=== PATIENT | female | born 1965 | race Caucasian/White ===

== ENCOUNTER 2018-06-30 07:57 | Inpatient (IN) | payer OTHER ==
[~2018-06-30] VITALS: Ht 175.3 cm; Wt 77.5 kg
[2018-06-30] MEDS ORDERED: IPRATROPIUM 0.5MG/ALBUTEROL 2.5MG INH SOL UD 3ML (DUONEB)(J7620) NEB ONE ×2 (08:15→11:00)
[2018-06-30] MEDS ORDERED: NS 1,000 ML IV ONE (08:15)
[2018-06-30] MEDS ORDERED: ACETAMINOPHEN 500 MG TAB PO ONE (08:15)
[2018-06-30 08:41] LABS: BASO # 0.1 10^3/uL (0.0-0.2); BASO % 0.6 % (0.0-1.0); HEMATOCRIT 44.3 % (36.0-47.0); HEMOGLOBIN 14.3 g/dl (12.0-15.5); LYMPH # 0.5 10^3/uL (1.5-4.5); LYMPH % 5.7 % (24.0-44.0); MEAN CORPUSCULAR HEMOGLOBIN 31.2 pg (27.0-33.0); MEAN CORPUSCULAR HGB CONC 32.3 g/dl (32.0-36.5); MEAN CORPUSCULAR VOLUME 96.5 fl (80.0-96.0); MONO # 0.7 10^3/uL (0.0-0.8); MONO % 8.3 % (0.0-5.0); NEUTROPHILS # 7.4 10^3/uL (1.8-7.7); NEUTROPHILS % 85.3 % (36.0-66.0); PLATELET COUNT, AUTOMATED 217 10^3/uL (150-450); RED BLOOD COUNT 4.59 10^6/uL (4.00-5.40); VENOUS BASE EXCESS 0.8 (-2.0-2.0); VENOUS HCO3 26.4 MEQ/L (23.0-27.0); VENOUS O2 SATURATION 80.2 % (60.0-80.0); VENOUS PARTIAL PRESSURE CO2 45.5 mmHg (38.0-50.0); VENOUS PARTIAL PRESSURE O2 42.9 mmHg (30.0-50.0); VENOUS PH 7.381 UNITS (7.330-7.430); VENOUS STANDARD HCO3 24.8 MEQ/L; VENOUS TOTAL CO2 27.8 MEQ/L (24.0-28.0); WHITE BLOOD COUNT 8.7 10^3/uL (4.0-10.0)
--- NOTE | 2018-06-30 08:43 | REP ---
Clinical: Cough and dyspnea . Comparison: 03/19/2013 . Findings: The mediastinum and cardiac silhouette are stable and within normal limits for portable technique. The lung blunt are clear without acute consolidation, effusion, or pneumothorax. Skeletal structures are intact. Impression: No acute cardiopulmonary process appreciated. Electronically Signed by Nicholas Escalante MD 06/30/2018 08:34 A
[2018-06-30 09:21] LABS: INFLUENZA A AMPLIFICATION POSITIVE (NEGATIVE); INFLUENZA B AMPLIFICATION NEGATIVE (NEGATIVE)
[2018-06-30 09:24] LABS: ALBUMIN 3.9 GM/DL (3.2-5.2); ALT/SGPT 23 U/L (12-78); BILIRUBIN,DIRECT < 0.1 MG/DL (0.0-0.2); BILIRUBIN,TOTAL 0.4 MG/DL (0.2-1.0); BLOOD UREA NITROGEN 12 MG/DL (7-18); CALCIUM LEVEL 8.9 MG/DL (8.5-10.1); CARBON DIOXIDE LEVEL 26 MEQ/L (21-32); CHLORIDE LEVEL 105 MEQ/L (98-107); CK-MB VALUE MASS < 1.0 NG/ML (<3.6); CPK CREATINE PHOSPHOKINASE 74 U/L (26-192); CREATININE FOR GFR 0.77 MG/DL (0.55-1.30); GLOMERULAR FILTRATION RATE > 60.0 (>51); GLUCOSE, FASTING 122 MG/DL (70-100); MB/CK RELATIVE INDEX 1.35 (< OR =4); NT-PRO BNP 1010 PG/ML (<125); POTASSIUM SERUM 3.8 MEQ/L (3.5-5.1); SODIUM LEVEL 138 MEQ/L (136-145); THYROID STIMULATING HORMONE 0.096 uIU/ML (0.358-3.740); TOTAL PROTEIN 7.1 GM/DL (6.4-8.2); TROPONIN I < 0.02 NG/ML (< 0.10)
[2018-06-30] MEDS ORDERED: OSELTAMIVIR PHOSPHATE 75 MG CAP (TAMIFLU) PO ONE (09:45)
[2018-06-30] MEDS ORDERED: ONDANSETRON 4 MG TAB (S0181) PO PRN (12:15)
[2018-06-30] MEDS ORDERED: BISACODYL 5 MG TAB PO PRN (12:15)
[2018-06-30] MEDS: PANTOPRAZOLE 40MG TAB (PROTONIX) PO SCH (12:56)
[2018-06-30] MEDS ORDERED: NICOTINE 21MG/24HR 1 EA TRANSDERMAL TD ONE (13:00)
[2018-06-30] MEDS ORDERED: AZITHROMYCIN 250 MG TAB PO ONE (13:00)
[2018-06-30] MEDS: IPRATROPIUM 0.5MG/ALBUTEROL 2.5MG INH SOL UD 3ML (DUONEB)(J7620) NEB SCH ×2 (13:24→19:22)
--- NOTE | 2018-06-30 15:31 | ECGEPIP ---
Stationary ECG Study [facility] - ED Test Date: 2018-06-30 Pat Name: JEAN PIERRE MERINO Department: Room: - Gender: F [employer]: : 1965 Requested By: Chayo Harmon Order Number: [id number] Reading MD: Gerald Fisher Measurements Intervals [place] Rate: 99 P: 54 WI: 146 QRS: 11 QRSD: 82 T: 49 QT: 347 QTc: 446 Interpretive Statements SINUS RHYTHM WITH OCCASIONAL ATRIAL AND VENTRICULAR PREMATURE COMPLEXES POSSIBLE LEFT ATRIAL ENLARGEMENT NONSPECIFIC T-WAVE ABNORMALITY NO PRIORS FOR COMPARISON Electronically Signed On 06-30-2018 15:30:46 EDT by Gerald Fisher
[2018-06-30] MEDS: ACETAMINOPHEN TAB 650MG DOSE (2X325MG) PO PRN ×4 (15:42→20:17)
[2018-06-30 15:55] VITALS: BP 121/77
--- NOTE | 2018-06-30 16:02 | HPEPDOC ---
[facility] Medical History & Physical Date of Admission Jun 30, 2018 Attending Physician: DOMINGO MARTE MD History and Physical CHIEF COMPLAINT: Cough and headache HISTORY OF PRESENT ILLNESS: Patient presents to the emergency department today stating that over the last couple of days she has been unable to eat or drink due to her nausea. She also reports 3 day history of rhinorrhea, and productive cough with clear sputum. She also reports feeling febrile with associated fever and chills. She is not taking any medication at home and does not have a primary care provider. In the emergency department the patient, patient presented with a pulse ox of 87%. She was subsequently started on 2 L of supplemental oxygen via nasal cannula. Saturations improved to 95%. Patient does not wear supplemental O2 at home. Patient was given a DuoNeb treatment with good effect and a bolus of fluid. CBC does not indicate anemia or elevated white count. CMP is largely unremarkable, no electrolyte abnormalities. Lactic acid is 1.3. Patient does have an elevated proBNP of 1010. Her neck enzymes are negative. Alkaline phosphatase mildly elevated at 158. Patient is positive for influenza A via PCR. Hospitalist team was consult for further treatment and evaluation of the patient. PAST MEDICAL HISTORY: 1. Low back pain Patient denies any previous significant medical history. PAST SURGICAL HISTORY: 1. Lumbar discectomy in 1996 2. Hysterectomy in 2004 SOCIAL HISTORY: Marital status: Resides in: Home with Tobacco use: Current smoker, 1 PPD since teen ETOH: Denies alcohol abuse Illicit drug use: Denies illicit drug use IV drug use: Denies IV drug use FAMILY HISTORY: Father: , 77, heart disease Mother: Alive, 86, dementia, arthritis, diabetes Siblings: 2 brothers, one at 63, diabetes, lymphoma. 3 sisters, one in 50s, diabetes ALLERGIES: Please see below. REVIEW OF SYSTEMS: CONSTITUTIONAL: Reports fevers, chills and fatigue. Denies night sweats, changes in weight HEENT: Complains of 3 day history of headache, rhinorrhea CARDIOVASCULAR: Denies chest pain, pressure, palpitations RESPIRATORY: Complains of three-day history of productive cough with clear sputum. GASTROINTESTINAL: Complains of nausea with 1 episode of vomiting yesterday. Inability to eat or drink due to nausea for 48 hours. Denies reflux, abdominal pain/cramping, constipation, diarrhea GENITOURINARY: Denies difficulty with urination SKIN: Denies new or changing skin lesions MUSCULOSKELETAL: Complains of generalized muscle aches, no weakness NEUROLOGICAL: Reports long-standing numbness and tingling in her hands and feet. No focal neurologic deficits PSYCHIATRIC: Denies depression or anxiety HOME MEDICATIONS: Patient denies utilizing any home medications other than the occasional Tylenol for her back pain and Unisom for sleep aid PHYSICAL EXAMINATION: VITAL SIGNS: Temperature 99.8F, pulse 96, respiratory rate 17, blood pressure 119/71, pulse oximetry 95 % on 2L supplemental O2 via NC. GENERAL APPEARANCE: Awake, alert, sitting upright in bed in no acute distress. HEENT: Mild posterior pharyngeal erythema, EOMI, PERRLA, neck is supple without lymphadenopathy CARDIOVASCULAR: Regular rate and rhythm, no murmurs gallops or rubs LUNGS: Clear to auscultation bilaterally, no prolonged expiratory phase, no wheezing, no crackles rales or rhonchi ABDOMEN: Obese, soft, nontender, no organomegaly MUSCULOSKELETAL: Able to move all extremities equally and bilaterally, no weakness EXTREMITIES: No lower extremity edema, no calf tenderness, peripheral pulses 2+ NEUROLOGICAL: No facial drooping, no aphasia, cranial nerves II through XII grossly intact, no focal neurologic deficits PSYCHIATRIC: Mood and affect are appropriate. LABORATORY DATA: See below. IMAGING: Chest x-ray (06/30/18): No acute cardiopulmonary process appreciated MICROBIOLOGY: Blood cultures (06/30/18): Pending ASSESSMENT: Maddy Urias is a 52-year-old female without a significant past medical history, lifelong smoker 1 pack per day, who presents emergency department with a three-day history of fever, chills, productive cough with associated nausea and vomiting. She was hypoxic on initial presentation, requiring 2 L of supplemental O2 via nasal cannula. Patient is positive for influenza A. PLAN: Influenza A - Patient started on Tamiflu 75 mg twice a day for 5 days, does not require renal dosing - Chest x-ray reviewed - Tylenol as needed for fever and muscle aches - Zofran PRN for nausea Hypoxia likely 2/2 to underlying obstructive lung disease - likely exacerbated by Influenza A - DuoNeb every 6 hours - Patient will continue on supplemental oxygen to maintain saturations above 92% - By mouth azithromycin for 5 days - Methylprednisolone 40 mg every 12 hours - Will check bedside spirometry to evaluate FEVa Nicotine dependence - Patient reports smoking 1 PPD since her teens - Patient placed on nicotine patch 21 mg GI prophylaxis: - PO Protonix DVT prophylaxis: Lovenox 40 mg SC Vital Signs Vital Signs Date Time Temp Pulse Resp B/P (MAP) Pulse Ox O2 Delivery O2 Flow Rate FiO2 06/30/18 14:08 99.1 83 16 118/63 (81) 96 Nasal Cannula 2.0 96 Laboratory Data Labs 24H Laboratory Tests 2 06/30/18 08:22: Immature Granulocyte % (Auto) 0.1, White Blood Count 8.7, Red Blood Count 4.59, Hemoglobin 14.3, Hematocrit 44.3, Mean Corpuscular Volume 96.5H, Mean Corpuscular Hemoglobin 31.2, Mean Corpuscular Hemoglobin Concent 32.3, Red Cell Distribution Width 13.5, Platelet Count 217, Neutrophils (%) (Auto) 85.3H, Lymphocytes (%) (Auto) 5.7L, Monocytes (%) (Auto) 8.3H, Eosinophils (%) (Auto) 0.0, Basophils (%) (Auto) 0.6, Neutrophils # (Auto) 7.4, Lymphocytes # (Auto) 0.5L, Monocytes # (Auto) 0.7, Eosinophils # (Auto) 0.0, Basophils # (Auto) 0.1, Nucleated Red Blood Cells % (auto) 0.0, Blood Gas Bicarbonate Standard 24.8, Venous Blood pH 7.381, Venous Blood Partial Pressure CO2 45.5, Venous Blood Partial Pressure O2 42.9, Venous Blood Total Carbon Dioxide 27.8, Venous Blood HCO3 26.4, Venous Blood Oxygen Saturation 80.2H, Venous Blood Base Excess 0.8, Anion Gap 7L, Glomerular Filtration Rate > 60.0, Lactic Acid Level 1.3, Calcium Level 8.9, Aspartate Amino Transf (AST/SGOT) 22, Alanine Aminotransferase (ALT/SGPT) 23, Alkaline Phosphatase 158H, Total Bilirubin 0.4, Direct Bilirubin < 0.1, Total Creatine Kinase 74, Creatine Kinase MB < 1.0, Creatine Kinase MB Relative Index 1.35, Troponin I < 0.02, UX-Ugr-R-Type Natriuretic Peptide 1010H, Total Protein 7.1, Albumin 3.9, Albumin/Globulin Ratio 1.22, Thyroid Stimulating Hormone (TSH) 0.096L, Influenza Type A (RT-PCR) POSITIVEH, Influenza Type B (RT- PCR) NEGATIVE CBC/BMP Laboratory Tests 06/30/18 08:22 Red Blood Count 4.59, Mean Corpuscular Volume 96.5 H, Mean Corpuscular Hemoglobin 31.2, Mean Corpuscular Hemoglobin Concent 32.3, Red Cell Distribution Width 13.5, Neutrophils (%) (Auto) 85.3 H, Lymphocytes (%) (Auto) 5.7 L, Monocytes (%) (Auto) 8.3 H, Eosinophils (%) (Auto) 0.0, Basophils (%) (Auto) 0.6, Neutrophils # (Auto) 7.4, Lymphocytes # (Auto) 0.5 L, Monocytes # (Auto) 0.7, Eosinophils # (Auto) 0.0, Basophils # (Auto) 0.1 Microbiology Microbiology 06/30/18 Blood Culture, Received Pending 06/30/18 Blood Culture, Received Pending Home Medications No Active Prescriptions or Reported Meds Allergies Coded Allergies: Aspirin (Verified Adverse Reaction, Mild, UPSET STOMACH, 07/21/12) GME ATTESTATION GME ATTESTATION My faculty preceptor for this patient encounter was physically present during the encounter and was fully available. All aspects of the patient interview, examination, medical decision making process, and medical care plan development were reviewed and approved by the faculty preceptor. The faculty preceptor is aware and concurs with the plan as stated in the body of this note and will attest to such by his/her cosignature. ATTENDING NOTE I, Domingo Marte, have both independently examined this patient as well as reviewed the documentation. I have discussed in detail with the resident the findings and plan of treatment as documented in the residents documentation. I will continue to follow the patient and offer further guidance to the patients care as necessary during this hospital stay. CARISSA CHINCHILLA DO Jun 30, 2018 16:02 DOMINGO MARTE MD Jun 30, 2018 17:26
[2018-06-30] MEDS: methylPREDNISolone INJ 40 MG/1 ML VIAL (J2920) IV SCH (17:24)
[2018-06-30 20:00] VITALS: BP 134/82
[2018-06-30] MEDS: OSELTAMIVIR PHOSPHATE 75 MG CAP (TAMIFLU) PO SCH (20:17)
[2018-07-01] MEDS: IPRATROPIUM 0.5MG/ALBUTEROL 2.5MG INH SOL UD 3ML (DUONEB)(J7620) NEB SCH ×4 (01:11→20:04)
[2018-07-01] MEDS: methylPREDNISolone INJ 40 MG/1 ML VIAL (J2920) IV SCH ×2 (03:07→15:08)
[2018-07-01 05:00] VITALS: BP 138/98
[2018-07-01] MEDS: ACETAMINOPHEN TAB 650MG DOSE (2X325MG) PO PRN ×3 (05:46→21:20)
[2018-07-01 06:54] LABS: HEMATOCRIT 39.4 % (36.0-47.0); HEMOGLOBIN 12.8 g/dl (12.0-15.5); MEAN CORPUSCULAR HEMOGLOBIN 31.1 pg (27.0-33.0); MEAN CORPUSCULAR HGB CONC 32.5 g/dl (32.0-36.5); MEAN CORPUSCULAR VOLUME 95.6 fl (80.0-96.0); PLATELET COUNT, AUTOMATED 191 10^3/uL (150-450); RED BLOOD COUNT 4.12 10^6/uL (4.00-5.40); WHITE BLOOD COUNT 8.3 10^3/uL (4.0-10.0)
[2018-07-01 07:14] LABS: BLOOD UREA NITROGEN 10 MG/DL (7-18); CALCIUM LEVEL 8.5 MG/DL (8.5-10.1); CARBON DIOXIDE LEVEL 29 MEQ/L (21-32); CHLORIDE LEVEL 104 MEQ/L (98-107); CREATININE FOR GFR 0.71 MG/DL (0.55-1.30); GLOMERULAR FILTRATION RATE > 60.0 (>51); GLUCOSE, FASTING 124 MG/DL (70-100); MAGNESIUM LEVEL 2.1 MG/DL (1.8-2.4); POTASSIUM SERUM 3.8 MEQ/L (3.5-5.1); SODIUM LEVEL 136 MEQ/L (136-145)
[2018-07-01] MEDS ORDERED: AZITHROMYCIN 250 MG TAB PO SCH (09:00)
[2018-07-01] MEDS: PANTOPRAZOLE 40MG TAB (PROTONIX) PO SCH (09:17)
[2018-07-01] MEDS: ENOXAPARIN 40 MG/0.4 ML SYRINGE (J1650) SC SCH (09:17)
[2018-07-01] MEDS: OSELTAMIVIR PHOSPHATE 75 MG CAP (TAMIFLU) PO SCH ×2 (09:17→20:35)
--- NOTE | 2018-07-01 12:00 | IPNPDOC ---
Date Seen The patient was seen on 07/01/18. Progress Note SUBJECTIVE: c/o cough productive of sputum white yellow. no fever or chills. not ambulated outside the room c/o generalized weakness. PHYSICAL EXAMINATION: VITAL SIGNS:PLEASE SEE BELOW GENERAL APPEARANCE: no use of accessory respiratory muscles. no cyanosis HEENT: no cervical LAD or JVD CARDIOVASCULAR: Regular rate and rhythm, no murmurs gallops or rubs LUNGS: Clear to auscultation bilaterally, no wheezing, rales, or rhonchi ABDOMEN: Obese, soft, nontender,(+) BS. EXT: no eema LABORATORY DATA: See below. IMAGING: Chest x-ray (06/30/18): No acute cardiopulmonary process appreciated MICROBIOLOGY: Blood cultures (06/30/18): Pending ASSESSMENT AND PLAN:Patient presents to the emergency department today stating that over the last couple of days she has been unable to eat or drink due to her nausea. She also reports 3 day history of rhinorrhea, and productive cough with clear sputum. She also reports feeling febrile with associated fever and chills. She is not taking any medication at home and does not have a primary care provider. In the emergency department the patient, patient presented with a pulse ox of 87%. She was subsequently started on 2 L of supplemental oxygen via nasal cannula. Saturations improved to 95%. Patient does not wear supplemental O2 at home. Patient was given a DuoNeb treatment with good effect and a bolus of fluid. CBC does not indicate anemia or elevated white count. CMP is largely unremarkable, no electrolyte abnormalities. Lactic acid is 1.3. Patient does have an elevated proBNP of 1010. Her neck enzymes are negative. Alkaline phosphatase mildly elevated at 158. Patient is positive for influenza A via PCR. Hospitalist team was consult for further treatment and evaluation of the patient. Influenza A on tamiflu x 5 days supplemental oxygen Acute hypoxic respiratory failure due to influenza supplemental oxygen if o2 sat<88% with ambulation no infiltrate or edema on cxr no wheezing on exam Nicotine dependence tobacco cessation counselling nicotine patch GI prophylaxis: - PO Protonix DVT prophylaxis: Lovenox 40 mg SC dc in am if stable. VS, I&O, 24H, Fishbone Vital Signs/I&O Vital Signs Date Time Temp Pulse Resp B/P (MAP) Pulse Ox O2 Delivery O2 Flow Rate FiO2 07/01/18 07:15 2.0 07/01/18 05:00 99.7 98 16 138/98 (111) 91 06/30/18 16:00 06/30/18 15:38 Nasal Cannula I&O- Last 24 Hours up to 6 AM 07/01/18 06:00 Intake Total 1780 ml Output Total 1200 ml Balance 580 ml Laboratory Data 24H LABS Laboratory Tests 2 07/01/18 06:33: Nucleated Red Blood Cells % (auto) 0.0, Anion Gap 3L, Glomerular Filtration Rate > 60.0, Blood Urea Nitrogen 10, Creatinine 0.71, Sodium Level 136, Potassium Level 3.8, Chloride Level 104, Carbon Dioxide Level 29, Calcium Level 8.5, Magnesium Level 2.1 CBC/BMP Laboratory Tests 07/01/18 06:33 Red Blood Count 4.12, Mean Corpuscular Volume 95.6, Mean Corpuscular Hemoglobin 31.1, Mean Corpuscular Hemoglobin Concent 32.5, Red Cell Distribution Width 13.3, Calcium Level 8.5 Microbiology Microbiology 06/30/18 Blood Culture - Preliminary, Resulted No growth after 24 hours . All specim... 06/30/18 Blood Culture - Preliminary, Resulted No growth after 24 hours . All specim... GENEVIEVE CROOKS MD Jul 01, 2018 11:43
--- NOTE | 2018-07-01 12:22 | PFTRPT ---
Height: 69.00 Inches Weight: 170.00 Lbs BSA: 1.93 Diagnosis: SOB DATE OF PROCEDURE: 07/01/2018 ORDERED BY: Dr. Domingo Gillespie Spirometry: Study of excellent technical quality. Some difficulty with effort. Forced vital capacity is severely reduced. FEV1 in proportion. Obstructive index is, therefore, normal. Flow Volume Loop: Expiratory limb of the flow volume loop does suggest flow rate limitation. Suboptimal effort is suspected. IMPRESSION: Suspect obstruction with air trapping. Suboptimal effort hampers data aquisition. Please correlate clinically. MTDD
[2018-07-01 14:00] VITALS: BP 130/72
[2018-07-01] MEDS ORDERED: guaiFENesin DM LIQ 10ML UD PO PRN (15:15)
[2018-07-01] MEDS ORDERED: guaiFENesin DM LIQ 10ML UD PO ONE (15:15)
[2018-07-01 22:00] VITALS: BP 122/74
[2018-07-02] MEDS: IPRATROPIUM 0.5MG/ALBUTEROL 2.5MG INH SOL UD 3ML (DUONEB)(J7620) NEB SCH ×3 (02:29→14:07)
[2018-07-02] MEDS: methylPREDNISolone INJ 40 MG/1 ML VIAL (J2920) IV SCH (04:27)
[2018-07-02 06:00] VITALS: BP 137/85
[2018-07-02 07:14] LABS: HEMOGLOBIN 13.1 g/dl (12.0-15.5); MEAN CORPUSCULAR HEMOGLOBIN 30.8 pg (27.0-33.0); MEAN CORPUSCULAR VOLUME 96.5 fl (80.0-96.0); PLATELET COUNT, AUTOMATED 194 10^3/uL (150-450); RED BLOOD COUNT 4.25 10^6/uL (4.00-5.40)
[2018-07-02 07:33] LABS: BLOOD UREA NITROGEN 10 MG/DL (7-18); CALCIUM LEVEL 8.9 MG/DL (8.5-10.1); CARBON DIOXIDE LEVEL 29 MEQ/L (21-32); CHLORIDE LEVEL 102 MEQ/L (98-107); CREATININE FOR GFR 0.68 MG/DL (0.55-1.30); GLOMERULAR FILTRATION RATE > 60.0 (>51); GLUCOSE, FASTING 112 MG/DL (70-100); MAGNESIUM LEVEL 2.4 MG/DL (1.8-2.4); POTASSIUM SERUM 3.7 MEQ/L (3.5-5.1); SODIUM LEVEL 139 MEQ/L (136-145)
[2018-07-02] MEDS ORDERED: GUAIDM5UD PO (08:41)
[2018-07-02] MEDS ORDERED: OSEL75CA2 PO (08:41)
[2018-07-02] MEDS ORDERED: VENTAER INH (08:43)
[2018-07-02] MEDS: OSELTAMIVIR PHOSPHATE 75 MG CAP (TAMIFLU) PO SCH (09:07)
[2018-07-02] MEDS: PANTOPRAZOLE 40MG TAB (PROTONIX) PO SCH (09:07)
[2018-07-02] MEDS: ENOXAPARIN 40 MG/0.4 ML SYRINGE (J1650) SC SCH (09:07)
--- NOTE | 2018-07-02 09:28 | REP ---
Chest x-ray: Two views. History: Hypoxia. Comparison study: June 30, 2018. Findings: On today's chest x-ray there are linear opacities in both lung bases suggesting bibasilar plate-like atelectasis. No definite infiltrate. Pleural angles are sharp. The heart is not felt to be enlarged. No significant bony abnormality. Impression: Bibasilar discoid atelectatic changes. Otherwise no acute disease. Electronically Signed by Jan Ricks MD 07/02/2018 01:12 P
[2018-07-02 14:00] VITALS: BP 140/80
--- NOTE | 2018-07-02 20:53 | DS.PDOC ---
Discharge Summary General Date of Admission Jun 30, 2018 at 13:11 Date of Discharge July 02, 2018 Discharge Summary DISCHARGE DIAGNOSES: Acute Hypoxic Respiratory Failure requiring supplemental oxygen 84% o2 sat on RA with ambulation Influenza A Nicotine Dependence Active Tobacco abuse DISCHARGE MEDICATIONS: pls see below HISTORY OF PRESENTING ILLNESS: Patient presents to the emergency department today stating that over the last couple of days she has been unable to eat or drink due to her nausea. She also reports 3 day history of rhinorrhea, and productive cough with clear sputum. She also reports feeling febrile with associated fever and chills. She is not taking any medication at home and does not have a primary care provider. In the emergency department the patient, patient presented with a pulse ox of 87%. She was subsequently started on 2 L of supplemental oxygen via nasal cannula. Sa turations improved to 95%. Patient does not wear supplemental O2 at home. Patient was given a DuoNeb treatment with good effect and a bolus of fluid. CBC does not indicate anemia or elevated white count. CMP is largely unremarkable, no electrolyte abnormalities. Lactic acid is 1.3. Patient does have an elevated proBNP of 1010. Her neck enzymes are negative. Alkaline phosphatase mildly elevated at 158. Patient is positive for influenza A via PCR. Hospitalist team was consult for further treatment and evaluation of the patient. HOSPITAL COURSE: Influenza A on tamiflu x 5 days supplemental oxygen Acute hypoxic respiratory failure due to influenza required home o2 to be prescribed due to room air o2sat 84% with ambulation no infiltrate or edema on cxr no wheezing on exam Nicotine dependence tobacco cessation counselling nicotine patch GI prophylaxis: - PO Protonix DVT prophylaxis: Lovenox 40 mg SC DISCHARGE PHYSICAL EXAMINATION: VITAL SIGNS:PLEASE SEE BELOW GENERAL APPEARANCE: no use of accessory respiratory muscles. no cyanosis HEENT: no cervical LAD or JVD CARDIOVASCULAR: Regular rate and rhythm, no murmurs gallops or rubs LUNGS: Clear to auscultation bilaterally, no wheezing, rales, or rhonchi ABDOMEN: Obese, soft, nontender,(+) BS. EXT: no edema DISCHARGE LABORATORY DATA, MICROBIOLOGY: See below. IMAGING: Chest x-ray (06/30/18): No acute cardiopulmonary process appreciated TIME SPENT ON DISCHARGE: 30 MIN. Vital Signs/I&Os Vital Signs Date Time Temp Pulse Resp B/P (MAP) Pulse Ox O2 Delivery O2 Flow Rate FiO2 07/02/18 14:00 97.1 79 18 140/80 (100) 94 07/01/18 07:15 06/30/18 16:00 06/30/18 15:38 Nasal Cannula I&O- Last 24 Hours up to 6 AM 07/02/18 06:00 Intake Total 1660 ml Output Total 1600 ml Balance 60 ml Laboratory Data Labs 24H Laboratory Tests 2 07/02/18 06:29: Nucleated Red Blood Cells % (auto) 0.0, Anion Gap 8, Glomerular Filtration Rate > 60.0, Blood Urea Nitrogen 10, Creatinine 0.68, Sodium Level 139, Potassium Level 3.7, Chloride Level 102, Carbon Dioxide Level 29, Calcium Level 8.9, Magnesium Level 2.4 CBC/BMP Laboratory Tests 07/02/18 06:29 Red Blood Count 4.25, Mean Corpuscular Volume 96.5 H, Mean Corpuscular Hemoglobin 30.8, Mean Corpuscular Hemoglobin Concent 32.0, Red Cell Distribution Width 13.2, Calcium Level 8.9 Microbiology Microbiology 06/30/18 Blood Culture - Preliminary, Resulted No Growth after 48 hours. All Specime... 06/30/18 Blood Culture - Preliminary, Resulted No Growth after 48 hours. All Specime... Discharge Medications Scheduled Oseltamivir Phosphate (Oseltamivir Phosphate) 75 Mg Cap, 75 MG PO BID Scheduled PRN Albuterol Sulfate (Ventolin Hfa) 108 Mcg/Act Aer, 2 PUFF INH Q4-6HP PRN for wheezing Guaifenesin/Dextromethorphan (Guaifenesin-Dm 100-10 mg/5Ml) 1 Syp Syp, 10 ML PO Q4HP PRN for COUGH Allergies Coded Allergies: Aspirin (Verified Adverse Reaction, Mild, UPSET STOMACH, 07/21/12) GENEVIEVE CROOKS MD Jul 02, 2018 20:53
== END 2018-07-02 15:21 | disposition home or self-care (01) | DRG 189 ==
LOC: M ED 07:57 → M ED INP 13:11 → M MS4PR 15:55
PROVIDERS: ADMIT Internal Medicine; ATTEND General Practice
DX: J96.01 Acute respiratory failure with hypoxia (principal); J10.1 Influenza due to other identified influenza virus with other respiratory manifestations; F17.210 Nicotine dependence, cigarettes, uncomplicated; M54.5 Low back pain

== ENCOUNTER 2018-07-05 15:33 | Emergency (ER) | payer OTHER ==
[~2018-07-05] VITALS: Ht 175.3 cm; Wt 76.4 kg
[~2018-07-05 15:33] MED LIST: GUAIDM5UD PO; OSEL75CA2 PO; VENTAER INH
[2018-07-05] MEDS ORDERED: CLOT10TR PO (16:14)
[2018-07-05 16:28] VITALS: BP 116/67
== END 2018-07-05 16:28 | disposition home or self-care (01) ==
LOC: M ED 15:33
DX: B37.0 Candidal stomatitis (principal); Z88.8 Allergy status to other drugs, medicaments and biological substances; Z87.891 Personal history of nicotine dependence

== ENCOUNTER → 2018-07-12 | Outpatient (CLI) | payer OTHER ==
[~2018-07-12] MED LIST changes: +CLOT10TR PO
--- NOTE | 2018-07-12 16:38 | REP ---
Clinical: Acute respiratory failure . Comparison: 07/02/2018 . Technique: PA and lateral. Findings: The mediastinum and cardiac silhouette are normal. The lung blunt demonstrate improved aeration when compared to prior examination. No acute consolidation, effusion, or pneumothorax. The skeletal structures are intact and normal. Impression: 1. Improved aeration when compared to prior examination. 2. No focal consolidation or effusion. Electronically Signed by Nicholas Escalante MD 07/12/2018 04:29 P
[2018-07-12 17:17] LABS: FREE T3 2.7 PG/ML (2.2-4.0); FREE T4 1.09 NG/DL (0.76-1.46); THYROID STIMULATING HORMONE 0.152 uIU/ML (0.358-3.740)
== END ==
LOC: M LAB 15:46
PROVIDERS: ATTEND Family Medicine
DX: R79.89 Other specified abnormal findings of blood chemistry (principal); J96.01 Acute respiratory failure with hypoxia

== ENCOUNTER → 2018-09-20 | Outpatient (CLI) | payer OTHER ==
[2018-09-20 13:12] LABS: BLOOD UREA NITROGEN 12 MG/DL (7-18); CALCIUM LEVEL 9.4 MG/DL (8.5-10.1); CARBON DIOXIDE LEVEL 32 MEQ/L (21-32); CHLORIDE LEVEL 105 MEQ/L (98-107); CHOLESTEROL LEVEL 265 MG/DL (<200); CHOLESTEROL RISK RATIO 6.794 (<5); CREATININE FOR GFR 0.81 MG/DL (0.55-1.30); GLOMERULAR FILTRATION RATE > 60.0 (>51); GLUCOSE, FASTING 90 MG/DL (70-100); HDL CHOLESTEROL 39 MG/DL (>40); LDL CHOLESTEROL 187 MG/DL (<100); NON-HDL-C 226 MG/DL; POTASSIUM SERUM 4.7 MEQ/L (3.5-5.1); SODIUM LEVEL 140 MEQ/L (136-145); TRIGLYCERIDES LEVEL 194 MG/DL (<150)
== END ==
LOC: M LAB 12:13
PROVIDERS: ATTEND Internal Medicine Cardiovascular Disease
DX: I50.9 Heart failure, unspecified (principal); I11.0 Hypertensive heart disease with heart failure

== ENCOUNTER → 2019-04-21 | Outpatient (CLI) | payer OTHER ==
[2019-04-21 17:25] LABS: HEMOGLOBIN A1c 5.2 %
[2019-04-21 17:33] LABS: FREE T4 0.91 NG/DL (0.76-1.46); THYROID STIMULATING HORMONE 0.03 uIU/ML (0.358-3.740)
--- NOTE | 2019-04-21 20:10 | REP ---
Clinical: Right hip pain. Technique: AP and frog lateral views of the right hip. Findings: Mild increased sclerosis to the acetabular roof with minimal joint space narrowing noted. No further arthritic changes noted. Surrounding soft tissues normal. No acute fracture dislocation. Impression: Essentially age-related changes noted. Electronically Signed by Nicholas Escalante MD 04/21/2019 08:02 P
== END ==
LOC: M LAB 16:23
PROVIDERS: ATTEND Student in an Organized Health Care Education/Training Program
DX: M25.551 Pain in right hip (principal)

== ENCOUNTER → 2020-04-22 | Outpatient (REF) | payer OTHER ==
[2020-04-22 12:40] LABS: HEMATOCRIT 45.3 % (36.0-47.0); HEMOGLOBIN 13.9 g/dl (12.0-15.5); MEAN CORPUSCULAR HEMOGLOBIN 28.7 pg (27.0-33.0); MEAN CORPUSCULAR HGB CONC 30.7 g/dl (32.0-36.5); MEAN CORPUSCULAR VOLUME 93.4 fl (80.0-96.0); PLATELET COUNT, AUTOMATED 384 10^3/uL (150-450); RED BLOOD COUNT 4.85 10^6/uL (4.00-5.40); WHITE BLOOD COUNT 7.7 10^3/uL (4.0-10.0)
[2020-04-22 13:26] LABS: ALBUMIN 4.4 GM/DL (3.2-5.2); ALT/SGPT 29 U/L (12-78); BILIRUBIN,TOTAL 0.4 MG/DL (0.2-1.0); BLOOD UREA NITROGEN 9 MG/DL (7-18); CALCIUM LEVEL 9.8 MG/DL (8.5-10.1); CARBON DIOXIDE LEVEL 30 MEQ/L (21-32); CHLORIDE LEVEL 106 MEQ/L (98-107); CREATININE FOR GFR 0.68 MG/DL (0.55-1.30); FOLATE 7.3 NG/ML (>5.4); FREE T4 1.05 NG/DL (0.76-1.46); GLOMERULAR FILTRATION RATE > 60.0 (>51); GLUCOSE, FASTING 101 MG/DL (70-100); MAGNESIUM LEVEL 2.3 MG/DL (1.8-2.4); POTASSIUM SERUM 5.3 MEQ/L (3.5-5.1); SODIUM LEVEL 139 MEQ/L (136-145); THYROID STIMULATING HORMONE < 0.005 uIU/ML (0.358-3.740); TOTAL PROTEIN 7.3 GM/DL (6.4-8.2); VITAMIN B12 LEVEL 313 PG/ML (247-911)
== END ==
LOC: M SFHCPLAZ 11:09
PROVIDERS: ATTEND Family Medicine
DX: R20.2 Paresthesia of skin (principal)

== ENCOUNTER → 2020-05-26 | Outpatient (CLI) | payer OTHER ==
[2020-05-26 14:36] LABS: FREE T4 0.93 NG/DL (0.76-1.46); THYROGLOBULIN ANTIBODY < 15.0 U/ML (<60.0); THYROID STIMULATING HORMONE < 0.005 uIU/ML (0.358-3.740)
[2020-05-26 14:37] LABS: TOTAL T3 185.1 NG/DL (60.0-181.0)
== END ==
LOC: M PLALAB 10:39
PROVIDERS: ATTEND Nurse Practitioner Family
DX: E05.00 Thyrotoxicosis with diffuse goiter without thyrotoxic crisis or storm (principal)

== ENCOUNTER → 2020-06-15 | Outpatient (CLI) | payer OTHER ==
--- NOTE | 2020-06-16 11:42 | REP ---
INDICATION: THYROIDTOXICOSIS. COMPARISON: None. TECHNIQUE/RADIOTRACER AND DOSE: Following the oral administration of 462 uCi iodine 123 as sodium iodine, thyroid uptake is measured. Thyroid scan is also performed in the anterior and both anterior oblique projections. FINDINGS: The 24 hour uptake is 24.38%. Normal range is 25-35%. Thyroid scan shows mild enlargement of the right lobe of the thyroid. Nodular increased uptake is seen in the lower half of the right lobe of the thyroid. There appears to be suppression of uptake throughout the right upper pole and throughout the left lobe of the thyroid. Findings are consistent with a hyperfunctioning right lobe nodule. IMPRESSION: The 24 hour thyroid uptake is essentially lower limits of normal at 24.3%. Nodular increased uptake in the lower right lobe of thyroid with apparent suppression of uptake in the remainder of the thyroid bilaterally. Findings are consistent with a hyperfunctioning right lobe nodule. <Electronically signed by Stewart Manley > 06/16/20 [id number]
== END ==
LOC: M RAD 09:00
PROVIDERS: ATTEND Nurse Practitioner Family
DX: E05.00 Thyrotoxicosis with diffuse goiter without thyrotoxic crisis or storm (principal)
CPT/HCPCS: 78012; A9516

== ENCOUNTER → 2020-09-06 | Outpatient (REF) | payer OTHER ==
[2020-09-06 13:42] LABS: HEMATOCRIT 42.5 % (36.0-47.0); HEMOGLOBIN 13.1 g/dl (12.0-15.5); MEAN CORPUSCULAR HEMOGLOBIN 29.6 pg (27.0-33.0); MEAN CORPUSCULAR HGB CONC 30.8 g/dl (32.0-36.5); MEAN CORPUSCULAR VOLUME 96.2 fl (80.0-96.0); PLATELET COUNT, AUTOMATED 378 10^3/uL (150-450); RED BLOOD COUNT 4.42 10^6/uL (4.00-5.40); WHITE BLOOD COUNT 7.4 10^3/uL (4.0-10.0)
[2020-09-06 16:09] LABS: ALT/SGPT 27 U/L (12-78); BILIRUBIN,TOTAL 0.3 MG/DL (0.2-1.0); BLOOD UREA NITROGEN 12 MG/DL (7-18); CARBON DIOXIDE LEVEL 28 MEQ/L (21-32); CHLORIDE LEVEL 104 MEQ/L (98-107); CREATININE FOR GFR 0.73 MG/DL (0.55-1.30); GLOMERULAR FILTRATION RATE > 60.0 (>51); GLUCOSE, FASTING 121 MG/DL (70-100); POTASSIUM SERUM 5.4 MEQ/L (3.5-5.1); SODIUM LEVEL 138 MEQ/L (136-145); TOTAL PROTEIN 7.1 GM/DL (6.4-8.2)
== END ==
LOC: M SFHCPLAZ 09:20
PROVIDERS: ATTEND Family Medicine
DX: E05.90 Thyrotoxicosis, unspecified without thyrotoxic crisis or storm (principal)

== ENCOUNTER → 2020-09-10 | Outpatient (CLI) | payer OTHER | LOC: M LABSMTC 09:01 | PROVIDERS: ATTEND Surgery | DX: Z01.818 Encounter for other preprocedural examination (principal); Z11.52 Encounter for screening for COVID-19 ==

== ENCOUNTER → 2020-09-22 | Outpatient (REF) | payer OTHER | LOC: M SFHCPLAZ 09:49 | PROVIDERS: ATTEND Family Medicine | DX: E89.0 Postprocedural hypothyroidism (principal) ==

== ENCOUNTER → 2020-12-12 | Outpatient (REF) | payer OTHER | LOC: M SFHCPLAZ 09:26 | PROVIDERS: ATTEND Family Medicine | DX: Z13.1 Encounter for screening for diabetes mellitus (principal) ==

== ENCOUNTER → 2020-12-12 | Outpatient (CLI) | payer OTHER ==
[2020-12-12 14:41] LABS: THYROID STIMULATING HORMONE < 0.005 uIU/ML (0.358-3.740)
[2020-12-12 15:30] LABS: HEMOGLOBIN A1c 5.7 %
[2020-12-12 15:40] LABS: % LABILE ALKALINE PHOSPHATASE 3.2 %; LABILE ALKPHOS 5 U/L; STABLE ALKPHOS 150 U/L
== END ==
LOC: M PLALAB 09:46
PROVIDERS: ATTEND Student in an Organized Health Care Education/Training Program
DX: Z13.1 Encounter for screening for diabetes mellitus (principal); R74.8 Abnormal levels of other serum enzymes

== ENCOUNTER → 2021-01-27 | Outpatient (CLI) | payer OTHER ==
[2021-01-27 16:17] LABS: CHOLESTEROL RISK RATIO 5.066 (<5)
== END ==
LOC: M PLALAB 12:13
PROVIDERS: ATTEND Student in an Organized Health Care Education/Training Program
DX: E78.2 Mixed hyperlipidemia (principal)

== ENCOUNTER → 2021-02-10 | Outpatient (REF) | payer OTHER | LOC: M SFHCPLAZ 10:28 | PROVIDERS: ATTEND Family Medicine | DX: R21 Rash and other nonspecific skin eruption (principal) ==

== ENCOUNTER → 2021-02-10 | Outpatient (CLI) | payer OTHER ==
[2021-02-11 15:09] LABS: Lyme Disease IgG/IgM Antibodie <0.91 ISR (0.00-0.90); Lyme Disease IgM Ab Quantitati <0.80 index (0.00-0.79)
== END ==
LOC: M PLALAB 10:46
PROVIDERS: ATTEND Student in an Organized Health Care Education/Training Program
DX: R21 Rash and other nonspecific skin eruption (principal)

== ENCOUNTER → 2021-05-08 | Outpatient (CLI) | payer OTHER ==
[~2021-05-08] MED LIST changes: +AMBI5TAB PO; +DULO1CAP4 PO; +HYDR-3490 PO; +LISI20TA33 PO; +PRAV20TA2 PO; +SPIR-10 PO; +SYNT137T7 PO
== END ==
LOC: M LABSMTC 10:49
PROVIDERS: ATTEND Anesthesiology
DX: Z01.818 Encounter for other preprocedural examination (principal); Z11.52 Encounter for screening for COVID-19

== ENCOUNTER 2021-05-12 07:28 | Day surgery (SDC) | payer OTHER ==
[~2021-05-12] VITALS: Ht 172.7 cm; Wt 79.3 kg
[~2021-05-12 07:28] MED LIST changes: +NS 1,000 ML IV ONE
[2021-05-12] MEDS ORDERED: propofoL 200 MG/20 ML VIAL As Ordered ONE ×2 (08:29→08:31)
[2021-05-12] MEDS ORDERED: LIDOCAINE 2% 100MG/5ML SDV (FOR ANES.) As Ordered ONE (08:29)
[2021-05-12] MEDS ORDERED: PHENYLephrine 500MCG 5ML (100MCG/ML) SYRINGE As Ordered ONE (08:31)
[2021-05-12 09:11] VITALS: BP 124/73
== END 2021-05-12 09:25 | disposition home or self-care (01) ==
LOC: M OPP 07:28
PROVIDERS: ATTEND Internal Medicine Gastroenterology
DX: Z12.11 Encounter for screening for malignant neoplasm of colon (principal); Z80.0 Family history of malignant neoplasm of digestive organs; K63.5 Polyp of colon; K64.8 Other hemorrhoids; Z79.899 Other long term (current) drug therapy; Z88.8 Allergy status to other drugs, medicaments and biological substances; Z87.891 Personal history of nicotine dependence; Z80.1 Family history of malignant neoplasm of trachea, bronchus and lung; Z80.7 Family history of other malignant neoplasms of lymphoid, hematopoietic and related tissues
CPT/HCPCS: 45385; 88305; J2370

== ENCOUNTER 2021-05-25 13:24 | Emergency (ER) | payer OTHER ==
[~2021-05-25] VITALS: Ht 172.7 cm; Wt 78.8 kg
[~2021-05-25 13:24] MED LIST changes: -NS 1,000 ML IV ONE
[2021-05-25] MEDS ORDERED: ACETAMINOPHEN 500 MG TAB PO ONE (19:30)
[2021-05-25] MEDS ORDERED: NS 1,000 ML IV ONE (19:30)
[2021-05-25 20:17] LABS: BASO % 0.2 % (0.0-1.0); EOS % 0.2 % (0.0-3.0); HEMATOCRIT 40.9 % (36.0-47.0); HEMOGLOBIN 13.1 g/dl (12.0-15.5); LYMPH # 1.4 10^3/uL (1.5-5.0); LYMPH % 28.1 % (24.0-44.0); MEAN CORPUSCULAR HEMOGLOBIN 29.6 pg (27.0-33.0); MEAN CORPUSCULAR VOLUME 92.3 fl (80.0-96.0); MONO # 0.4 10^3/uL (0.0-0.8); MONO % 7.6 % (2.0-8.0); NEUTROPHILS # 3.3 10^3/uL (1.5-8.5); NEUTROPHILS % 63.5 % (36.0-66.0); PLATELET COUNT, AUTOMATED 261 10^3/uL (150-450); RED BLOOD COUNT 4.43 10^6/uL (4.00-5.40); WHITE BLOOD COUNT 5.1 10^3/uL (4.0-10.0)
[2021-05-25 20:47] LABS: BLOOD UREA NITROGEN 10 MG/DL (7-18); CALCIUM LEVEL 8.7 MG/DL (8.5-10.1); CARBON DIOXIDE LEVEL 29 MEQ/L (21-32); CHLORIDE LEVEL 102 MEQ/L (98-107); CREATININE FOR GFR 0.83 MG/DL (0.55-1.30); GLOMERULAR FILTRATION RATE > 60.0 (>51); GLUCOSE, FASTING 116 MG/DL (70-100); POTASSIUM SERUM 3.8 MEQ/L (3.5-5.1); SODIUM LEVEL 137 MEQ/L (136-145); THYROID STIMULATING HORMONE < 0.005 uIU/ML (0.358-3.740)
[2021-05-25] MEDS ORDERED: ISOVUE-370 76% 100ML VIAL As Ordered ONE (22:09)
[2021-05-26] MEDS ORDERED: PROAAER10 INH (00:05)
[2021-05-26 00:15] VITALS: BP 96/59
== END 2021-05-26 00:18 | disposition home or self-care (01) ==
LOC: M ED 13:24
DX: U07.1 COVID-19 (principal); J12.81 Pneumonia due to SARS-associated coronavirus; R42 Dizziness and giddiness; I10 Essential (primary) hypertension; M51.34 Other intervertebral disc degeneration, thoracic region; Z88.6 Allergy status to analgesic agent
CPT/HCPCS: 71045; 71275; 80048; 84439; 84443; 85025; 85379; 93005; 96360; 96361; 99284; Q9967

== ENCOUNTER → 2021-09-08 | Outpatient (REF) | payer OTHER ==
[~2021-09-08] MED LIST changes: +PROAAER10 INH
== END ==
LOC: M SFHCPLAZ 11:17
PROVIDERS: ATTEND Family Medicine
DX: E89.0 Postprocedural hypothyroidism (principal); E78.2 Mixed hyperlipidemia; Z13.1 Encounter for screening for diabetes mellitus

== ENCOUNTER → 2021-09-08 | Outpatient (CLI) | payer OTHER ==
[2021-09-08 16:30] LABS: CHOLESTEROL RISK RATIO 4.372 (<5); FREE T3 2.5 PG/ML (2.2-4.0); FREE T4 0.89 NG/DL (0.76-1.46); THYROID STIMULATING HORMONE 8.4 uIU/ML (0.358-3.740)
[2021-09-08 16:31] LABS: TOTAL T3 103.3 NG/DL (60.0-181.0)
[2021-09-08 16:36] LABS: HEMOGLOBIN A1c 5.6 %
== END ==
LOC: M PLALAB 11:47
PROVIDERS: ATTEND Student in an Organized Health Care Education/Training Program
DX: Z13.1 Encounter for screening for diabetes mellitus (principal)

== ENCOUNTER → 2021-10-25 | Outpatient (CLI) | payer OTHER ==
[2021-10-25 12:07] LABS: BASO # 0.1 10^3/uL (0.0-0.2); BASO % 1.2 % (0.0-1.0); EOS # 0.2 10^3/uL (0.0-0.5); EOS % 2.6 % (0.0-3.0); HEMATOCRIT 41.7 % (36.0-47.0); HEMOGLOBIN 13.1 g/dl (12.0-15.5); LYMPH # 2.1 10^3/uL (1.5-5.0); LYMPH % 30.6 % (24.0-44.0); MEAN CORPUSCULAR HEMOGLOBIN 30.8 pg (27.0-33.0); MEAN CORPUSCULAR HGB CONC 31.4 g/dl (32.0-36.5); MEAN CORPUSCULAR VOLUME 97.9 fl (80.0-96.0); MONO # 0.5 10^3/uL (0.0-0.8); NEUTROPHILS % 58.5 % (36.0-66.0); PLATELET COUNT, AUTOMATED 340 10^3/uL (150-450); RED BLOOD COUNT 4.26 10^6/uL (4.00-5.40); WHITE BLOOD COUNT 6.9 10^3/uL (4.0-10.0)
[2021-10-25 13:20] LABS: ERYTHROCYTE SEDIMENTATION RATE 12 mm/hr (0-30)
[2021-10-25 15:00] LABS: ALBUMIN 4.1 GM/DL (3.2-5.2); ALT/SGPT 35 U/L (12-78); BILIRUBIN,TOTAL 0.5 MG/DL (0.2-1.0); BLOOD UREA NITROGEN 9 MG/DL (7-18); CALCIUM LEVEL 9.6 MG/DL (8.5-10.1); CARBON DIOXIDE LEVEL 29 MEQ/L (21-32); CHLORIDE LEVEL 105 MEQ/L (98-107); CREATININE FOR GFR 0.81 MG/DL (0.55-1.30); GLOMERULAR FILTRATION RATE > 60.0 (>51); GLUCOSE, FASTING 109 MG/DL (70-100); POTASSIUM SERUM 4.7 MEQ/L (3.5-5.1); RHEUMATOID FACTOR QUANT < 10.0 IU/ML (<15.0); SODIUM LEVEL 137 MEQ/L (136-145); TOTAL PROTEIN 6.9 GM/DL (6.4-8.2)
[2021-10-27 01:08] LABS: CYCLIC CITRULLINATED PEPTIDE 4 units (0-19)
== END ==
LOC: M PLALAB 08:49
PROVIDERS: ATTEND Physician Assistant
DX: R21 Rash and other nonspecific skin eruption (principal)

== ENCOUNTER → 2021-11-09 | Outpatient (CLI) | payer OTHER ==
[2021-11-09 13:57] LABS: APPEARANCE, URINE CLEAR (CLEAR); BACTERIA, URINE AUTO NEGATIVE (NEGATIVE); BILIRUBIN, URINE AUTO NEGATIVE (NEGATIVE); BLOOD, URINE BLOOD NEGATIVE (NEGATIVE); COLOR, URINE YELLOW (YELLOW); GLUCOSE, URINE (UA) AUTO NEGATIVE (NEGATIVE); KETONE, URINE AUTO NEGATIVE (NEGATIVE); LEUKOCYTE ESTERASE, URINE AUTO NEGATIVE (NEGATIVE); NITRITE, URINE AUTO NEGATIVE (NEGATIVE); PROTEIN, URINE AUTO NEGATIVE (NEGATIVE); RBC, URINE AUTO 1 /HPF (0-3); SPECIFIC GRAVITY URINE AUTO 1.013 (1.002-1.035); SQUAMOUS EPITHELIAL CELL UR AU 1 /HPF (0-6); UROBILINOGEN, URINE AUTO 0.2 mg/dL (0.0-2.0); WBC, URINE AUTO 2 /HPF (0-3)
[2021-11-09 13:58] LABS: BASO # 0.1 10^3/uL (0.0-0.2); BASO % 0.9 % (0.0-1.0); EOS # 0.1 10^3/uL (0.0-0.5); EOS % 1.1 % (0.0-3.0); HEMATOCRIT 46.6 % (36.0-47.0); LYMPH # 2.8 10^3/uL (1.5-5.0); LYMPH % 31.6 % (24.0-44.0); MEAN CORPUSCULAR HEMOGLOBIN 31.4 pg (27.0-33.0); MEAN CORPUSCULAR HGB CONC 32.2 g/dl (32.0-36.5); MEAN CORPUSCULAR VOLUME 97.7 fl (80.0-96.0); MONO # 0.8 10^3/uL (0.0-0.8); MONO % 9.3 % (2.0-8.0); NEUTROPHILS % 56.6 % (36.0-66.0); PLATELET COUNT, AUTOMATED 334 10^3/uL (150-450); RED BLOOD COUNT 4.77 10^6/uL (4.00-5.40); WHITE BLOOD COUNT 8.8 10^3/uL (4.0-10.0)
[2021-11-09 14:20] LABS: ALBUMIN 4.5 GM/DL (3.2-5.2); ALT/SGPT 35 U/L (12-78); BILIRUBIN,TOTAL 0.5 MG/DL (0.2-1.0); BLOOD UREA NITROGEN 14 MG/DL (7-18); CALCIUM LEVEL 10.8 MG/DL (8.5-10.1); CARBON DIOXIDE LEVEL 27 MEQ/L (21-32); CHLORIDE LEVEL 99 MEQ/L (98-107); COMPLEMENT C3 148 MG/DL (90-180); COMPLEMENT C4 28 MG/DL (10-40); CREATININE FOR GFR 0.98 MG/DL (0.55-1.30); FREE T4 1.21 NG/DL (0.76-1.46); GLOMERULAR FILTRATION RATE > 60.0 (>51); GLUCOSE, FASTING 105 MG/DL (70-100); POTASSIUM SERUM 4.9 MEQ/L (3.5-5.1); SODIUM LEVEL 135 MEQ/L (136-145); THYROID STIMULATING HORMONE 0.065 uIU/ML (0.358-3.740); TOTAL PROTEIN 7.9 GM/DL (6.4-8.2)
[2021-11-09 14:24] LABS: ERYTHROCYTE SEDIMENTATION RATE 7 mm/hr (0-30)
[2021-11-09 14:54] LABS: THYROGLOBULIN ANTIBODY 18.7 U/ML (<60.0); THYROID PEROXIDASE ANTIBODY 37.2 U/ML (<60.0)
[2021-11-10 12:45] LABS: ALBUMIN 4.88 GM/DL (3.29-5.55); ALBUMIN % 61.8 % (55.8-66.1); ALPHA-1-GLOBULIN % 4.4 % (2.9-4.9); ALPHA-1-GLOBULINS 0.35 GM/DL (0.17-0.41); ALPHA-2-GLOBULINS 1.07 GM/DL (0.42-0.99); ALPHA-2-GLOBULINS % 13.5 % (7.1-11.8); BETA-1-GLOBULINS 0.44 GM/DL (0.28-0.60); BETA-1-GLOBULINS % 5.6 % (4.7-7.2); BETA-2-GLOBULINS 0.41 GM/DL (0.19-0.55); BETA-2-GLOBULINS % 5.2 % (3.2-6.5); GAMMA GLOBULIN % 9.5 % (11.1-18.8); GAMMA GLOBULINS 0.75 GM/DL (0.65-1.58)
== END ==
LOC: M PLALAB 09:18
PROVIDERS: ATTEND Physician Assistant
DX: R21 Rash and other nonspecific skin eruption (principal); R53.81 Other malaise; R53.83 Other fatigue

== ENCOUNTER → 2021-11-16 | Outpatient (REF) | payer OTHER | LOC: M SFHCPLAZ 10:21 | PROVIDERS: ATTEND Physician Assistant | DX: L98.9 Disorder of the skin and subcutaneous tissue, unspecified (principal); R21 Rash and other nonspecific skin eruption ==

== ENCOUNTER → 2021-11-17 | Outpatient (CLI) | payer OTHER ==
[2021-11-17 16:43] LABS: BLOOD UREA NITROGEN 5 MG/DL (7-18); CALCIUM LEVEL 9.8 MG/DL (8.5-10.1); CARBON DIOXIDE LEVEL 29 MEQ/L (21-32); CHLORIDE LEVEL 103 MEQ/L (98-107); CREATININE FOR GFR 0.92 MG/DL (0.55-1.30); GLOMERULAR FILTRATION RATE > 60.0 (>51); GLUCOSE, FASTING 99 MG/DL (70-100); PHOSPHORUS LEVEL 3.3 MG/DL (2.5-4.9); POTASSIUM SERUM 4.7 MEQ/L (3.5-5.1); SODIUM LEVEL 139 MEQ/L (136-145)
[2021-11-17 17:07] LABS: PTH INTACT 67.4 PG/ML (18.5-88.0); TOTAL 25(OH) VITAMIN D 21.5 NG/ML (30.0-100.0)
[2021-11-17 21:28] LABS: TOTAL PROTEIN,RANDOM URINE 13.5 MG/DL (0.0-12.0)
== END ==
LOC: M PLALAB 12:30
PROVIDERS: ATTEND Physician Assistant
DX: R21 Rash and other nonspecific skin eruption (principal); R53.83 Other fatigue

== ENCOUNTER → 2022-01-26 | Outpatient (CLI) | payer OTHER | LOC: M RAD 10:00 | PROVIDERS: ATTEND Physician Assistant | DX: R21 Rash and other nonspecific skin eruption (principal); R52 Pain, unspecified; E83.52 Hypercalcemia; R74.8 Abnormal levels of other serum enzymes ==

== ENCOUNTER → 2022-02-02 | Outpatient (CLI) | payer OTHER | LOC: M PLAIMG 12:40 | PROVIDERS: ATTEND Physician Assistant | DX: R94.8 Abnormal results of function studies of other organs and systems (principal); M79.672 Pain in left foot; M88.88 Osteitis deformans of other bones ==

== ENCOUNTER → 2022-03-20 | Outpatient (REF) | payer OTHER ==
[2022-03-20 18:03] LABS: ALBUMIN 4.5 G/DL (3.2-5.2); BLOOD UREA NITROGEN 8 MG/DL (9-23); CALCIUM LEVEL 10.1 MG/DL (8.5-10.1); CARBON DIOXIDE LEVEL 29 MMOL/L (20-31); CHLORIDE LEVEL 103 MMOL/L (98-107); CREATININE FOR GFR 0.75 MG/DL (0.55-1.30); GLOMERULAR FILTRATION RATE > 60.0 (>51); GLUCOSE, FASTING 99 MG/DL (60-100); PHOSPHORUS LEVEL 3.8 MG/DL (2.5-4.9); POTASSIUM SERUM 4.3 MMOL/L (3.5-5.1); SODIUM LEVEL 141 MMOL/L (136-145)
[2022-03-20 18:06] LABS: THYROID STIMULATING HORMONE 0.032 uIU/ML (0.55-4.78); TOTAL 25(OH) VITAMIN D 50.5 NG/ML (20.0-100.0)
[2022-03-20 18:07] LABS: FREE T4 1.36 NG/DL (0.89-1.76)
[2022-03-20 18:55] LABS: PTH INTACT 64.5 PG/ML (18.5-88.0)
== END ==
LOC: M SFHCPLAZ 16:45
PROVIDERS: ATTEND Physician Assistant
DX: M81.0 Age-related osteoporosis without current pathological fracture (principal); E89.0 Postprocedural hypothyroidism

== ENCOUNTER → 2022-04-05 | Outpatient (CLI) | payer OTHER | LOC: M WHC 12:59 | PROVIDERS: ATTEND Physician Assistant | DX: M81.0 Age-related osteoporosis without current pathological fracture (principal); Z12.31 Encounter for screening mammogram for malignant neoplasm of breast ==

== ENCOUNTER → 2022-04-20 | Outpatient (CLI) | payer OTHER ==
[~2022-04-20] MED LIST changes: +ISOVUE-370 76% 100ML VIAL As Ordered ONE
== END ==
LOC: M RAD 15:55
PROVIDERS: ATTEND Physician Assistant
DX: R91.8 Other nonspecific abnormal finding of lung field (principal)

== ENCOUNTER 2022-04-30 13:50 | Outpatient (CLI) | payer OTHER ==
[~2022-04-30] VITALS: Ht 170.2 cm; Wt 77.1 kg
[2022-04-30 13:50] VITALS: BP 120/81
[~2022-04-30 13:50] MED LIST changes: -ISOVUE-370 76% 100ML VIAL As Ordered ONE
[2022-04-30] MEDS ORDERED: ZOLEDRONIC ACID 5 MG in IV 1 EA IV ONE (14:30)
[2022-04-30 14:54] VITALS: BP 129/71
== END 2022-04-30 15:00 | disposition home or self-care (01) ==
LOC: M INFU 13:50
PROVIDERS: ATTEND Physician Assistant
DX: M81.0 Age-related osteoporosis without current pathological fracture (principal); M88.9 Osteitis deformans of unspecified bone; Z88.8 Allergy status to other drugs, medicaments and biological substances

== ENCOUNTER → 2022-06-12 | Outpatient (CLI) | payer OTHER | LOC: M WHC 13:24 | PROVIDERS: ATTEND Physician Assistant | DX: Z12.31 Encounter for screening mammogram for malignant neoplasm of breast (principal) ==

== ENCOUNTER → 2022-08-08 | Outpatient (CLI) | payer OTHER ==
[2022-08-08 18:04] LABS: BASO # 0.1 10^3/uL (0.0-0.2); BASO % 0.9 % (0.0-1.0); EOS # 0.2 10^3/uL (0.0-0.5); EOS % 2.9 % (0.0-3.0); HEMATOCRIT 45.7 % (36.0-47.0); HEMOGLOBIN 14.3 g/dl (12.0-15.5); LYMPH # 1.9 10^3/uL (1.5-5.0); LYMPH % 24.4 % (24.0-44.0); MEAN CORPUSCULAR HEMOGLOBIN 30.5 pg (27.0-33.0); MEAN CORPUSCULAR HGB CONC 31.3 g/dl (32.0-36.5); MEAN CORPUSCULAR VOLUME 97.4 fl (80.0-96.0); MONO # 0.7 10^3/uL (0.0-0.8); MONO % 8.3 % (2.0-8.0); NEUTROPHILS # 4.9 10^3/uL (1.5-8.5); NEUTROPHILS % 63.2 % (36.0-66.0); PLATELET COUNT, AUTOMATED 273 10^3/uL (150-450); RED BLOOD COUNT 4.69 10^6/uL (4.00-5.40); WHITE BLOOD COUNT 7.8 10^3/uL (4.0-10.0)
[2022-08-08 18:18] LABS: ERYTHROCYTE SEDIMENTATION RATE 14 mm/hr (0-30)
[2022-08-08 18:35] LABS: ALBUMIN 4.3 G/DL (3.2-5.2); ALKALINE PHOSPHATASE 62 U/L (46-116); ALT/SGPT 40 U/L (7.0-40); AST/SGOT 29 U/L (<34); BILIRUBIN,TOTAL 0.4 MG/DL (0.3-1.2); BLOOD UREA NITROGEN 10 MG/DL (9-23); CALCIUM LEVEL 9.2 MG/DL (8.5-10.1); CARBON DIOXIDE LEVEL 31 MMOL/L (20-31); CHLORIDE LEVEL 106 MMOL/L (98-107); CREATININE FOR GFR 0.85 MG/DL (0.55-1.30); GLOMERULAR FILTRATION RATE > 60.0 (>51); GLUCOSE, FASTING 113 MG/DL (60-100); POTASSIUM SERUM 4.3 MMOL/L (3.5-5.1); SODIUM LEVEL 143 MMOL/L (136-145); TOTAL PROTEIN 6.8 G/DL (5.7-8.2)
[2022-08-08 18:36] LABS: FREE T4 1.26 NG/DL (0.89-1.76); THYROID STIMULATING HORMONE 0.009 uIU/ML (0.55-4.78)
[2022-08-08 18:38] LABS: C REACTIVE PROTEIN QUANTITATIV < 0.40 MG/DL (<1.0)
== END ==
LOC: M PLALAB 14:30
PROVIDERS: ATTEND Physician Assistant
DX: R21 Rash and other nonspecific skin eruption (principal)

== ENCOUNTER → 2022-11-06 | Outpatient (CLI) | payer OTHER ==
[2022-11-06 18:58] LABS: THYROID STIMULATING HORMONE 0.022 uIU/ML (0.55-4.78)
[2022-11-06 18:59] LABS: TOTAL 25(OH) VITAMIN D 69.5 NG/ML (20.0-100.0)
[2022-11-06 19:01] LABS: ALBUMIN 4.3 G/DL (3.2-5.2); BLOOD UREA NITROGEN 11 MG/DL (9-23); CALCIUM LEVEL 9.7 MG/DL (8.5-10.1); CARBON DIOXIDE LEVEL 25 MMOL/L (20-31); CHLORIDE LEVEL 106 MMOL/L (98-107); FREE T4 1.45 NG/DL (0.89-1.76); GLOMERULAR FILTRATION RATE > 60.0 (>51); GLUCOSE, FASTING 111 MG/DL (60-100); PHOSPHORUS LEVEL 2.5 MG/DL (2.5-4.9); POTASSIUM SERUM 4.3 MMOL/L (3.5-5.1); PTH INTACT 49.1 PG/ML (18.5-88.0); SODIUM LEVEL 141 MMOL/L (136-145)
[2022-11-06 19:04] LABS: ANTI-STREPTOLYSIN O QUANT 49.3 IU/ML (<195)
[2022-11-06 19:06] LABS: THYROGLOBULIN ANTIBODY < 15.0 U/ML (<60.0); THYROID PEROXIDASE ANTIBODY < 28.0 U/ML (<60.0)
[2022-11-06 19:32] LABS: HEPATITIS C VIRUS ABY INDEX 0.07 INDEX (<0.8)
== END ==
LOC: M PLALAB 12:16
PROVIDERS: ATTEND Family Medicine
DX: R21 Rash and other nonspecific skin eruption (principal)

== ENCOUNTER → 2022-11-19 | Outpatient (CLI) | payer OTHER | LOC: M WHC 14:37 | PROVIDERS: ATTEND Physician Assistant | DX: R92.8 Other abnormal and inconclusive findings on diagnostic imaging of breast (principal) | CPT/HCPCS: 77066; G0279 ==

== ENCOUNTER → 2023-01-03 | Outpatient (CLI) | payer OTHER ==
[~2023-01-03] MED LIST changes: +PROHANCE 279.3MG/ML 15ML VIAL As Ordered ONE
== END ==
LOC: M RAD 07:58
PROVIDERS: ATTEND Family Medicine
DX: M88.9 Osteitis deformans of unspecified bone (principal)

== ENCOUNTER → 2023-01-21 | Outpatient (CLI) | payer OTHER ==
[~2023-01-21] MED LIST changes: +**SFHN** LIDOCAINE 1% MDV 20ML VIAL ONE; +**SFHN** SODIUM BICARBONATE 8.4% 10MEQ 10ML VIAL ONE; -PROHANCE 279.3MG/ML 15ML VIAL As Ordered ONE
[2023-01-21 10:25] VITALS: TEMP 98.2
[2023-01-21 10:52] VITALS: BP 138/76; O2SAT 99
== END ==
LOC: M WHCPRO 12-27 08:11
PROVIDERS: ATTEND Family Medicine
DX: R92.8 Other abnormal and inconclusive findings on diagnostic imaging of breast (principal); N63.21 Unspecified lump in the left breast, upper outer quadrant
CPT/HCPCS: 19081; 77065; 88305; G0279

== ENCOUNTER → 2023-04-05 | Outpatient (REF) | payer OTHER ==
[~2023-04-05] MED LIST changes: -**SFHN** LIDOCAINE 1% MDV 20ML VIAL ONE; -**SFHN** SODIUM BICARBONATE 8.4% 10MEQ 10ML VIAL ONE
== END ==
LOC: M SFHCPLAZ 15:16
PROVIDERS: ATTEND Family Medicine
DX: Z53.9 Procedure and treatment not carried out, unspecified reason (principal)

== ENCOUNTER → 2023-05-11 | Outpatient (CLI) | payer OTHER ==
[2023-05-11 13:01] LABS: BASO # 0.1 10^3/uL (0.0-0.2); BASO % 1.2 % (0.0-1.0); EOS # 0.3 10^3/uL (0.0-0.5); EOS % 4.6 % (0.0-3.0); HEMATOCRIT 39.4 % (36.0-47.0); HEMOGLOBIN 12.5 g/dl (12.0-15.5); LYMPH # 2.1 10^3/uL (1.5-5.0); LYMPH % 34.8 % (24.0-44.0); MEAN CORPUSCULAR HEMOGLOBIN 31.1 pg (27.0-33.0); MEAN CORPUSCULAR HGB CONC 31.7 g/dl (32.0-36.5); MONO # 0.6 10^3/uL (0.0-0.8); MONO % 9.5 % (2.0-8.0); NEUTROPHILS % 49.7 % (36.0-66.0); PLATELET COUNT, AUTOMATED 244 10^3/uL (150-450); RED BLOOD COUNT 4.02 10^6/uL (4.00-5.40)
[2023-05-11 13:06] LABS: ERYTHROCYTE SEDIMENTATION RATE 9 mm/hr (0-30)
[2023-05-11 13:14] LABS: HEMOGLOBIN A1c 5.3 % (4.0-6.0)
[2023-05-11 13:26] LABS: C REACTIVE PROTEIN QUANTITATIV < 0.40 MG/DL (<1.0)
[2023-05-11 13:28] LABS: ALBUMIN 3.7 G/DL (3.2-5.2); ALKALINE PHOSPHATASE 57 U/L (46-116); ALT/SGPT 32 U/L (7.0-40); AST/SGOT 37 U/L (<34); BILIRUBIN,TOTAL 0.4 MG/DL (0.3-1.2); BLOOD UREA NITROGEN 10 MG/DL (9-23); CALCIUM LEVEL 8.8 MG/DL (8.5-10.1); CARBON DIOXIDE LEVEL 33 MMOL/L (20-31); CHLORIDE LEVEL 108 MMOL/L (98-107); CHOLESTEROL LEVEL 102 MG/DL (<200); GLOMERULAR FILTRATION RATE > 60.0 (>51); GLUCOSE, FASTING 107 MG/DL (60-100); HDL CHOLESTEROL 39.1 MG/DL (>40); LDL CHOLESTEROL 50.7 MG/DL (<100); NON-HDL-C 62.9 MG/DL; POTASSIUM SERUM 4.6 MMOL/L (3.5-5.1); PTH INTACT 106.7 PG/ML (18.5-88.0); SODIUM LEVEL 144 MMOL/L (136-145); TOTAL PROTEIN 6.1 G/DL (5.7-8.2); TRIGLYCERIDES LEVEL 61 MG/DL (<150); VITAMIN B12 LEVEL 1089 PG/ML (211-911)
[2023-05-11 13:29] LABS: FERRITIN 109.5 NG/ML (7.3-270.7); TOTAL 25(OH) VITAMIN D 104.2 NG/ML (20.0-100.0)
== END ==
LOC: M LAB 12:20
PROVIDERS: ATTEND Family Medicine
DX: M88.9 Osteitis deformans of unspecified bone (principal); E53.8 Deficiency of other specified B group vitamins

== ENCOUNTER 2023-05-14 15:45 | Outpatient (CLI) | payer OTHER ==
[2023-05-14 16:11] VITALS: BP 117/56; O2SAT 96
[2023-05-14] MEDS ORDERED: ZOLEDRONIC ACID 5 MG in IV 1 EA IV ONE (16:30)
[2023-05-14 16:35] VITALS: BP 125/72; O2SAT 96
== END 2023-05-14 16:35 | disposition home or self-care (01) ==
LOC: M INFU 15:45
PROVIDERS: ATTEND Family Medicine
DX: M81.0 Age-related osteoporosis without current pathological fracture (principal); Z88.8 Allergy status to other drugs, medicaments and biological substances
CPT/HCPCS: 96413; J3489

== ENCOUNTER → 2023-07-26 | Outpatient (CLI) | payer OTHER | LOC: M RAD 16:54 | PROVIDERS: ATTEND Family Medicine | DX: Z12.31 Encounter for screening mammogram for malignant neoplasm of breast (principal); Z53.9 Procedure and treatment not carried out, unspecified reason ==

== ENCOUNTER → 2023-08-13 | Outpatient (CLI) | payer OTHER | LOC: M RAD 07:09 | PROVIDERS: ATTEND Family Medicine | DX: M88.9 Osteitis deformans of unspecified bone (principal) ==

== ENCOUNTER → 2023-08-20 | Outpatient (CLI) | payer OTHER | LOC: M RAD 06:58 | PROVIDERS: ATTEND Family Medicine | DX: M88.9 Osteitis deformans of unspecified bone (principal) ==

== ENCOUNTER → 2023-11-21 | Outpatient (CLI) | payer OTHER ==
[2023-11-21 18:13] LABS: BLOOD UREA NITROGEN 5 MG/DL (9-23); CREATININE FOR GFR 0.82 MG/DL (0.55-1.30); GLOMERULAR FILTRATION RATE > 60.0 (>51)
== END ==
LOC: M PLALAB 14:28
PROVIDERS: ATTEND Orthopaedic Surgery
DX: M25.579 Pain in unspecified ankle and joints of unspecified foot (principal)

== ENCOUNTER → 2023-11-27 | Outpatient (CLI) | payer OTHER ==
[~2023-11-27] MED LIST changes: +PROHANCE 279.3MG/ML 15ML VIAL ONE
== END ==
LOC: M PLAIMG 11:58
PROVIDERS: ATTEND Orthopaedic Surgery
DX: M88.9 Osteitis deformans of unspecified bone (principal); M25.572 Pain in left ankle and joints of left foot
CPT/HCPCS: 73723; A9576

== ENCOUNTER → 2024-01-16 | Outpatient (CLI) | payer OTHER ==
[~2024-01-16] MED LIST changes: -PROHANCE 279.3MG/ML 15ML VIAL ONE
== END ==
LOC: M RAD 12:49
PROVIDERS: ATTEND Family Medicine
DX: Z87.891 Personal history of nicotine dependence (principal)

== ENCOUNTER → 2024-05-18 | Outpatient (CLI) | payer OTHER ==
[2024-05-18 15:31] LABS: BASO % 0.3 % (0.0-1.0); EOS % 0.5 % (0.0-3.0); HEMATOCRIT 41.1 % (36.0-47.0); HEMOGLOBIN 12.8 g/dl (12.0-15.5); LYMPH # 1.9 10^3/uL (1.5-5.0); LYMPH % 24.8 % (24.0-44.0); MEAN CORPUSCULAR HEMOGLOBIN 30.5 pg (27.0-33.0); MEAN CORPUSCULAR HGB CONC 31.1 g/dl (32.0-36.5); MEAN CORPUSCULAR VOLUME 97.9 fl (80.0-96.0); MONO # 0.6 10^3/uL (0.0-0.8); MONO % 7.3 % (2.0-8.0); NEUTROPHILS % 66.8 % (36.0-66.0); PLATELET COUNT, AUTOMATED 416 10^3/uL (150-450); WHITE BLOOD COUNT 7.5 10^3/uL (4.0-10.0)
[2024-05-18 15:57] LABS: ALBUMIN 3.4 G/DL (3.2-5.2); ALKALINE PHOSPHATASE 59 U/L (35-104); ALT/SGPT 23 U/L (7.0-40); AST/SGOT 19 U/L (<34); BILIRUBIN,TOTAL 0.5 MG/DL (0.3-1.2); BLOOD UREA NITROGEN 10 MG/DL (9-23); CALCIUM LEVEL 8.9 MG/DL (8.3-10.6); CARBON DIOXIDE LEVEL 32 MMOL/L (20-31); CHLORIDE LEVEL 104 MMOL/L (98-107); CREATININE FOR GFR 0.75 MG/DL (0.55-1.30); GLOMERULAR FILTRATION RATE > 60.0 (>45); GLUCOSE, FASTING 97 MG/DL (74-106); IMMUNOGLOBULIN A 171.2 MG/DL (40-350); IMMUNOGLOBULIN G 711 MG/DL (650-1600); POTASSIUM SERUM 5.2 MMOL/L (3.5-5.1); PTH INTACT 74.9 PG/ML (18.5-88.0); SODIUM LEVEL 143 MMOL/L (136-145)
[2024-05-18 15:58] LABS: THYROID STIMULATING HORMONE 0.055 uIU/ML (0.55-4.78); TOTAL 25(OH) VITAMIN D 87.1 NG/ML (20.0-100.0)
[2024-05-18 15:59] LABS: FREE T4 1.57 NG/DL (0.89-1.76)
== END ==
LOC: M PLALAB 13:02
PROVIDERS: ATTEND Family Medicine
DX: E55.9 Vitamin D deficiency, unspecified (principal); E89.0 Postprocedural hypothyroidism

== ENCOUNTER 2024-05-19 13:21 | Outpatient (CLI) | payer OTHER ==
[~2024-05-19] VITALS: Ht 170.2 cm; Wt 73.0 kg
[2024-05-19] MEDS: ZOLEDRONIC ACID 5 MG in IV 1 EA IV ONE (13:35)
[2024-05-19 13:39] VITALS: BP 115/70; O2SAT 97
[2024-05-19 14:10] VITALS: BP 109/72; O2SAT 97
== END 2024-05-19 14:11 ==
LOC: M INFU 13:21
PROVIDERS: ATTEND Family Medicine
DX: M81.0 Age-related osteoporosis without current pathological fracture (principal); Z88.8 Allergy status to other drugs, medicaments and biological substances
CPT/HCPCS: 96365; J3489

== ENCOUNTER → 2024-10-15 | Outpatient (CLI) | payer OTHER ==
[~2024-10-15] MED LIST changes: -AMBI5TAB PO; -CLOT10TR PO; +CLOT10TR11 PO; -PRAV20TA2 PO; +PRAV20TA78 PO; +ZOLP-532 PO
[2024-10-15 14:40] LABS: BASO # 0.1 10^3/uL (0.0-0.2); BASO % 0.7 % (0.0-1.0); EOS # 0.3 10^3/uL (0.0-0.5); EOS % 3.8 % (0.0-3.0); LYMPH # 2.5 10^3/uL (1.5-5.0); LYMPH % 34.6 % (24.0-44.0); MONO # 0.6 10^3/uL (0.0-0.8); MONO % 8.3 % (2.0-8.0); NEUTROPHILS # 3.8 10^3/uL (1.5-8.5); NEUTROPHILS % 52.2 % (36.0-66.0); PLATELET COUNT, AUTOMATED 239 10^3/uL (150-450)
[2024-10-15 14:49] LABS: ALT/SGPT 22.0 U/L (7.0-40); AST/SGOT 26.0 U/L (<34); CALCIUM LEVEL 9.3 MG/DL (8.3-10.6); CARBON DIOXIDE LEVEL 33.0 MMOL/L (20-31); CHLORIDE LEVEL 104.0 MMOL/L (98-107); CHOLESTEROL LEVEL 125.0 MG/DL (<200); CHOLESTEROL RISK RATIO 2.03 (<5); CREATININE FOR GFR 0.96 MG/DL (0.55-1.30); GLOMERULAR FILTRATION RATE 67.7 (>45); LDL CHOLESTEROL 53.8 MG/DL (<100); NON-HDL-C 63.6 MG/DL; POTASSIUM SERUM 4.6 MMOL/L (3.5-5.1); SODIUM LEVEL 148.0 MMOL/L (136-145); TRIGLYCERIDES LEVEL 49.0 MG/DL (<150)
[2024-10-15 14:52] LABS: TOTAL 25(OH) VITAMIN D 87.0 NG/ML (20.0-100.0)
[2024-10-15 14:56] LABS: PTH INTACT 76.6 PG/ML (18.5-88.0)
[2024-10-15 14:58] LABS: ESTIMATED AVERAGE GLUCOSE 103.0 MG/DL (60-110); FREE T4 1.03 NG/DL (0.89-1.76)
[2024-10-15 15:00] LABS: THYROID PEROXIDASE ANTIBODY 39.0 U/ML (<60.0)
[2024-10-20 16:09] LABS: TSH RECEPTOR ASSAY < 1.00 IU/L (<=2.00)
== END ==
LOC: M PLALAB 10:01
PROVIDERS: ATTEND Family Medicine
DX: E55.9 Vitamin D deficiency, unspecified (principal); E89.0 Postprocedural hypothyroidism; G89.4 Chronic pain syndrome; E78.2 Mixed hyperlipidemia; R73.01 Impaired fasting glucose; M81.0 Age-related osteoporosis without current pathological fracture

== ENCOUNTER → 2024-11-03 | Outpatient (CLI) | payer OTHER | LOC: M WHC 13:54 | PROVIDERS: ATTEND Family Medicine | DX: Z12.31 Encounter for screening mammogram for malignant neoplasm of breast (principal); M81.0 Age-related osteoporosis without current pathological fracture; R92.323 Mammographic fibroglandular density, bilateral breasts; M85.89 Other specified disorders of bone density and structure, multiple sites ==

== ENCOUNTER → 2025-03-29 | Outpatient (CLI) | payer OTHER | LOC: M RAD 15:24 | PROVIDERS: ATTEND Family Medicine | DX: Z87.891 Personal history of nicotine dependence (principal) ==